=== PATIENT | male | born 1965 | race Hispanic/Latino ===

== ENCOUNTER 2016-09-21 07:33 | Emergency (ER) | payer OTHER ==
[2016-09-21] MEDS ORDERED: Adacel (T-DAP) 0.5 ML VIAL ONE (07:42)
[2016-09-21] MEDS ORDERED: Bacitracin Zinc 1 Packet ONE (08:48)
--- NOTE | 2016-09-21 21:10 | RAD ---
LEFT FOREARM TWO VIEWS 09/21/16 No fracture or opaque foreign body was seen. The radius and ulna appear intact. IMPRESSION: No acute finding. POS: HOME
== END 2016-09-21 09:17 | disposition home or self-care (01) ==
LOC: BURERS 07:33
DX: S51.812A Laceration without foreign body of left forearm, initial encounter (principal); W23.0XXA Caught, crushed, jammed, or pinched between moving objects, initial encounter
CPT/HCPCS: 12032; 90471; 90715